=== PATIENT | female | born 1955 | race Caucasian/White ===

== ENCOUNTER → 2017-12-08 | Outpatient (CLI) | payer OTHER ==
[~2017-12-08] MED LIST: ALIS150T PO; CIPR500 PO; MULVITMIND PO; PHENA100 PO
[2017-12-09 15:09] LABS: HPV 16 Negative (Negative); HPV 18 Negative (Negative); HPV OTHER HR TYPES Negative (Negative)
== END | disposition home or self-care (01) ==
LOC: LAB SHORT 12:14 → LAB 12:14
PROVIDERS: Nurse Practitioner Women's Health
DX: Z12.4 Encounter for screening for malignant neoplasm of cervix (principal); Z91.89 Other specified personal risk factors, not elsewhere classified
CPT/HCPCS: 87624; G0123

== ENCOUNTER → 2018-12-18 | Outpatient (CLI) | payer OTHER ==
[2018-12-21 07:08] LABS: HPV 16 Negative (Negative); HPV 18 Negative (Negative); HPV OTHER HR TYPES Negative (Negative)
== END | disposition home or self-care (01) ==
LOC: LAB SHORT 18:03 → LAB 18:03
PROVIDERS: Nurse Practitioner Women's Health
DX: Z12.4 Encounter for screening for malignant neoplasm of cervix (principal); Z91.89 Other specified personal risk factors, not elsewhere classified
CPT/HCPCS: 87624; G0123

== ENCOUNTER → 2023-04-19 | Outpatient (CLI) | payer OTHER | LOC: LAB SHORT 11:52 → LAB 11:52 | DX: R23.4 Changes in skin texture (principal) | CPT/HCPCS: 88305; 88312 ==

== ENCOUNTER 2024-12-11 05:59 | Day surgery (SDC) | payer OTHER ==
[~2024-12-11] VITALS: Ht 162.6 cm; Wt 78.4 kg
[2024-12-11] VITALS (11 sets, daily range): BP systolic 111–148; BP diastolic 57–96
[~2024-12-11 05:59] MED LIST changes: -ALIS150T PO; +ALISKIREN PO; +ARTHRITIS PAIN150 GM; +Cyclobenzaprine5 MG PO; +MELO7.5 PO
[2024-12-11] MEDS ORDERED: Chlorhexidine Mouth Care 15 ML UDC MT SCH (06:25)
[2024-12-11] MEDS ORDERED: Tranexamic Acid 100 ML IV SCH (06:25)
[2024-12-11] MEDS ORDERED: CeFAZolin Sodium 2,000 MG in NS 100 ML IV SCH ×2 (06:25→15:45)
[2024-12-11] MEDS ORDERED: Ropivacaine 0.5% HCl/Pf 123.125 MG,EPINEPHrine HCL 0.25 MG,Ketorolac Tromethamine 15 MG... INFIL SCH (06:25)
[2024-12-11] MEDS ORDERED: FentaNYL Citrate 50 MCG/ML 2 ML Injection ONE (07:00)
[2024-12-11] MEDS ORDERED: Midazolam HCl 1MG / ML 2ML Vial ONE ×3 (07:00→08:14)
--- NOTE | 2024-12-11 07:35 | NUR ---
History, Chart, Medications and Allergies reviewed before start of procedure. Pre-Op teaching done. Pt verbalizes understanding. Patient confirms NPO status and agrees with scheduled surgery. Patient reports completing Chlorhexadine shower X2 prior to admission to hospital. Surgical site prepped with 2% Chlorhexidine cloth wipe. Lungs clear T/O to Auscultation. Patient States Post-Procedure ride home has been arranged.
[2024-12-11] MEDS ORDERED: ePHEDrine Sulfate 50 MG/ML 1ML Injection ONE (08:26)
[2024-12-11] MEDS ORDERED: Ondansetron HCl 2 MG / ML 2ML Vial ONE (09:02)
[2024-12-11] MEDS ORDERED: Ondansetron HCl 2 MG / ML 2ML Vial IV PRN ×2 (09:05→09:15)
[2024-12-11] MEDS ORDERED: HYDROmorphone HCl/Pf 1MG SYR IV PRN ×3 (09:05→09:20)
[2024-12-11] MEDS ORDERED: FentaNYL Citrate 50 MCG/ML 2 ML Injection IV PRN ×2 (09:05→09:10)
[2024-12-11] MEDS ORDERED: Prochlorperazine Edisylate 10 mg Vial IV PRN (09:15)
[2024-12-11] MEDS ORDERED: Metoclopramide HCl 5MG / ML 2ML Vial IV PRN (09:25)
[2024-12-11] MEDS ORDERED: Magnesium Hydroxide Conc 10 ML UDC PO PRN (09:25)
[2024-12-11] MEDS ORDERED: FLU VACC TS2025(65UP)/MF59C/PF 45 MCG/0.5 ML SYRINGE IM SCH (09:30)
--- NOTE | 2024-12-11 10:00 | NUR ---
ARRIVAL TO UNIT PT ARRIVED TO UNIT A/OX4. IMPAIRED SENSATION DUE TO SPINAL. VSS. TOLERATING PO INTAKE. DRESSING C/D/I.
[2024-12-11] MEDS ORDERED: ASPI81CH PO (10:53)
[2024-12-11] MEDS ORDERED: Ketorolac Tromethamine 15mg Vial IV SCH (12:00)
--- NOTE | 2024-12-11 14:44 | NUR ---
DISCHARGE NOTE PT A/OX4. TOLERATING INTAKE, VOIDING WELL. DENIES N/V. SPOUSE TOOK PERSONAL BELONGINGS. DRESSING C/D/I. PT AND SPOUSE VERBALIZED UNDERSTANDING OF DC EDUCATION. PT WORKED W/ PHYSICAL THERAPY. POLAR PACK W PATIENT. ESCORTED OUT VIA WC.
== END 2024-12-11 14:43 | disposition home or self-care (01) ==
LOC: ORSCMMR 05:59 → ORD 07:30 → ORSCMMR 07:30 → SURS 09:43 → ORSCMMR 14:43
PROVIDERS: Orthopaedic Surgery
PROC: 0SRB0JZ Replacement of Left Hip Joint with Synthetic Substitute, Open Approach (ICD-10-PCS; principal; 2024-12-11 07:30)
DX: M16.12 Unilateral primary osteoarthritis, left hip (principal); M87.9 Osteonecrosis, unspecified; I10 Essential (primary) hypertension; Z79.899 Other long term (current) drug therapy
CPT/HCPCS: 72170; 97110; 97116; 97162; 97530; A9270; C1776; J0166; J0690; J0735; J1885; J2250; J2405; J2704; J2795; J3010; J7120